=== PATIENT | female | born 1965 | race Caucasian/White ===

== ENCOUNTER 2017-09-05 17:41 | Emergency (ER) | payer OTHER ==
[2017-09-05 17:55] VITALS: BP 129/78; PULSE 96; TEMP 98.2; BMI 29.2
[2017-09-05] MEDS ORDERED: ASPIRIN 81 MG CHEWABLE TABLETS PO ONE (18:54)
[2017-09-05] MEDS ORDERED: ASPIRIN 81 MG CHEWABLE TABLETS ONE (19:13)
[2017-09-05 19:28] LABS: BASOPHIL 0.7 % (0-2.0); EOSINOPHIL 2.1 % (0-4.5); MCH 29.3 pg (25.7-33.7); MCHC 33.3 g/dl (32.0-36.0); MEAN CELL VOLUME 87.9 fl (80-96); MEAN PLT VOLUME 8.7 fl (7.5-11.1); NEUTROPHILS 51.1 % (42.8-82.8); PLATELET COUNT 234 K/MM3 (134-434)
[2017-09-05 19:42] LABS: INR 0.95 (0.82-1.09); PROTHROMBIN TIME (PATIENT) 10.7 SEC (9.98-11.88)
--- NOTE | 2017-09-05 19:43 | PDOC ---
History of Present Illness - General Chief Complaint: Chest Pain Stated Complaint: CHEST PAIN Time Seen by Provider: 09/05/17 18:21 History Source: Patient Exam Limitations: No Limitations - History of Present Illness Initial Comments: Patient is a 51 yo F with a PMH of HTn, diabetes, asthma, hypothyroidism, gastritis, and herpes (she wasnt sure), presented to the ED with 6/10, intermittent, radiating to the right neck and LUQ, pressure-like chest pain that started 3 days ago. She said it hurts when she breathes and with movement and nothing alleviates the pain. She had a similar episode last week with nausea and 1 episode of vomiting. She said she also noticed dyspnea and SOB on exertion when walking long distances that started months ago. Patient also endorses palpitations that started around the same time as the SOB. Patient denies dizziness, falls, headaches, and LOC. 09/05/17 19:39 09/05/17 19:43 Presenting Symptoms: Abdominal Pain, Chest Pain, Dizziness, Nausea, Short of Breath, Vomiting Timing/Duration: reports: intermittent Severity/Quality: reports: moderate, pressure Location: reports: central, abdomen Chest Pain Radiation: reports: neck (right neck), other (RUQ abdomen) Activities at Onset: reports: exertion, no specific activity, working Prior Chest Pain/Cardiac Workup: reports: No prior cardiac workup. denies: Echocardiography, Heart Attack Modifying Factors: improves with: breathing, movement, palpation Past History - Past Medical History Allergies/Adverse Reactions: Allergies Allergy/AdvReac Type Severity Reaction Status Date / Time No Known Allergies Allergy Verified 09/05/17 17:55 Home Medications: Ambulatory Orders Albuterol Sulfate Inhaler - [Ventolin HFA Inhaler -] 2 inh PO Q4H PRN 07/24/15 Folic Acid 1 mg PO DAILY 07/24/15 Hydrochlorothiazide 25 mg PO DAILY 07/24/15 Levothyroxine [Synthroid -] 25 mcg PO DAILY 07/24/15 Lisinopril 5 mg PO DAILY 07/24/15 Methotrexate Sodium [Methotrexate] 2.5 mg PO DAILY 07/24/15 Omeprazole [Prilosec] 40 mg PO DAILY 07/24/15 Oxycodone HCl/Acetaminophen [Percocet 7.5-500 mg Tablet] 1 - 2 tab PO Q6H PRN 09 /12/15 Sulfamethoxazole/Trimethoprim [Bactrim *Ds*] 1 tab PO BID #14 tablet 12/14/15 Anemia: No Asthma: Yes Cancer: No Cardiac Disorders: No CVA: No COPD: No CHF: No Dementia: No Diabetes: Yes (DM) GI Disorders: Yes (GASTRITIS) HTN: Yes Hypercholesterolemia: No Seizures: No Thyroid Disease: Yes - Surgical History Abdominal Surgery: Yes (FIBROIDS REMOVED) Appendectomy: No Cardiac Surgery: No Cholecystectomy: Yes Lung Surgery: No Neurologic Surgery: No Orthopedic Surgery: Yes (ARTHROSCOPY KNEE) - Immunization History Immunization Up to Date: Yes - Suicide/Smoking/Psychosocial Hx Smoking Status: No Smoking History: Never smoked Have you smoked in the past 12 months: No Number of Cigarettes Smoked Daily: 0 Hx Alcohol Use: No Drug/Substance Use Hx: No Substance Use Type: None Hx Substance Use Treatment: No Cardiac Specific PMH - Complaint Specific PMHX Pacemaker: No Review of Systems - Review of Systems Constitutional: No: Diaphoresis, Fever, Night Sweats HEENTM: No: Blurred Vision, Recent change in vision Respiratory: Yes: Shortness of Breath, SOB with Exertion. No: Cough, Wheezing Cardiac (ROS): Yes: Chest Pain, Palpitations. No: Edema, Lightheadedness, Syncope ABD/GI: Yes: Nausea, Vomiting. No: Abdominal Distended, Constipated, Diarrhea, Difficulty Swallowing : No: Burning, Dysuria Neurological: Yes: Dizziness. No: Headache, Numbness, Tingling, Weakness, Unsteady Gait *Physical Exam - Vital Signs Last Vital Signs Temp Pulse Resp BP Pulse Ox 98.2 F 96 H 20 129/78 100 09/05/17 17:52 09/05/17 17:52 09/05/17 17:52 09/05/17 17:52 09/05/17 17:52 - Physical Exam General Appearance: No: Apparent Distress HEENT: positive: EOMI, SALINA, Normal Voice, Symmetrical Neck: positive: Supple Respiratory/Chest: positive: Chest Tender (Tender to palpation on chest), Lungs Clear, Normal Breath Sounds Cardiovascular: positive: Regular Rhythm, Regular Rate. negative: Edema, JVD Vascular Pulses: Dorsalis-Pedis (R): 2+, Doralis-Pedis (L): 2+ Gastrointestinal/Abdominal: positive: Tender (LUQ) Heart Score/ECG Review - Electrocardiogram EKG: Normal ED Treatment Course - LABORATORY CBC & Chemistry Diagram: 09/05/17 19:20 09/05/17 19:20 - ADDITIONAL ORDERS Additional order review: 09/05/17 19:20 RBC 4.28 MCV 87.9 MCHC 33.3 RDW 14.0 MPV 8.7 Neutrophils % 51.1 D Lymphocytes % 37.8 D Monocytes % 8.3 Eosinophils % 2.1 Basophils % 0.7 - Medications Given in the ED: ED Medications Discontinued Medications Generic Name Dose Route Start Last Admin Trade Name Freq PRN Reason Stop Dose Admin Aspirin 162 mg 09/05/17 18:54 09/05/17 19:26 Asa - PO 09/05/17 18:55 162 mg ONCE ONE Administration Medical Decision Making - Medical Decision Making #Atypical Chest pain -Trops -CBC -CMP -BNP -Cardiac monitoring -ASA -monitor vital signs *DC/Admit/Observation/Transfer Diagnosis at time of Disposition: Atypical chest pain, Chest pain in adult
[2017-09-05 19:53] LABS: ALBUMIN 3.8 g/dl (3.4-5.0); ANION GAP 6 (8-16); BILIRUBIN,TOTAL 0.8 mg/dL (0.2-1.0); CALCIUM 8.6 mg/dL (8.5-10.1); CO2 31 mmol/L (21-32); CREATININE 0.8 mg/dL (0.55-1.02); GLUCOSE,RANDOM 111 mg/dL (74-106); MAGNESIUM 2.2 mg/dL (1.8-2.4); SGOT/AST 16 U/L (15-37); SGPT/ALT 25 U/L (12-78); TOT PROT 7.3 g/dl (6.4-8.2)
[2017-09-05 19:56] LABS: ALK PHOS 66 U/L (45-117); CPK 100 IU/L (26-192); TROPONIN I < 0.02 ng/ml (0.00-0.05)
--- NOTE | 2017-09-05 21:07 | PDOC ---
*Physical Exam - Vital Signs Last Vital Signs Temp Pulse Resp BP Pulse Ox 98.2 F 96 H 20 129/78 100 09/05/17 17:52 09/05/17 17:52 09/05/17 17:52 09/05/17 17:52 09/05/17 17:52 - Physical Exam General Appearance: Yes: Nourished, Appropriately Dressed Respiratory/Chest: positive: Lungs Clear Cardiovascular: positive: Regular Rhythm, Regular Rate, S1, S2. negative: Murmur Gastrointestinal/Abdominal: positive: Soft. negative: Guarding, Rebound Neurologic: positive: Fully Oriented, Alert ED Treatment Course - LABORATORY CBC & Chemistry Diagram: 09/05/17 19:20 09/05/17 19:20 - ADDITIONAL ORDERS Additional order review: Laboratory Results 09/05/17 09/05/17 09/05/17 19:20 19:20 19:20 PT with INR 10.70 INR 0.95 Sodium 138 Potassium 3.6 Chloride 101 Carbon Dioxide 31 Anion Gap 6 L BUN 11 Creatinine 0.8 Creat Clearance w eGFR > 60 Random Glucose 111 H Calcium 8.6 Magnesium 2.2 Total Bilirubin 0.8 D AST 16 ALT 25 Alkaline Phosphatase 66 Creatine Kinase 100 Troponin I < 0.02 B-Natriuretic Peptide 11.97 Total Protein 7.3 Albumin 3.8 09/05/17 19:20 RBC 4.28 MCV 87.9 MCHC 33.3 RDW 14.0 MPV 8.7 Neutrophils % 51.1 D Lymphocytes % 37.8 D Monocytes % 8.3 Eosinophils % 2.1 Basophils % 0.7 - Medications Given in the ED: ED Medications Discontinued Medications Generic Name Dose Route Start Last Admin Trade Name Federico PRN Reason Stop Dose Admin Aspirin 162 mg 09/05/17 18:54 09/05/17 19:26 Asa - PO 09/05/17 18:55 162 mg ONCE ONE Administration Medical Decision Making - Medical Decision Making 09/05/17 21:06 Patient is a 51 y.o. female who presents with chest pain. During course of admission, patient continued to complain of chest pain (reproducible) as well as diffuse abdominal pain with initial c/o of pain in LLQ and then suprapubic however on PE patient did not display tenderness of palpation. EKG shows NSR, HR 80, with normal intervals, no LAD/RAD, and no ST elevations/depressions indicating ischemic change. Patient's Heart Score 2. Troponin (-) x1 as patient's pain started three days previous, less sensitive for [place], however, given patient's low cardiac risk as per Heart Score, as well as reproducible chest pain and EKG negative for ischemic changes, patient to be discharged home with return precautions. *DC/Admit/Observation/Transfer Diagnosis at time of Disposition: Atypical chest pain, Chest pain in adult - Discharge Dispostion Disposition: HOME Condition at time of disposition: Good Admit: No - Referrals Referrals: Fanta Dill MD [Primary Care Provider] - - Patient Instructions Printed Discharge Instructions: DI for Atypical Chest Pain Additional Instructions: Please return to the Emergency Department should you have any worsening or concerning symptoms. Please follow-up with your PCP in the next 1 week. - Post Discharge Activity
--- NOTE | 2017-09-06 17:23 | EKG ---
Test Reason : Blood Pressure : / mmHG Vent. Rate : 080 BPM Atrial Rate : 080 BPM P-R Int : 156 ms QRS Dur : 086 ms QT Int : 398 ms P-R-T Axes : 051 022 033 degrees QTc Int : 459 ms NORMAL SINUS RHYTHM NORMAL ECG WHEN COMPARED WITH ECG OF 13-DEC-2015 22:03, NO SIGNIFICANT CHANGE WAS FOUND Confirmed by LEILANI DOUGLAS MD ([id number]) on 09/06/2017 5:22:50 PM Referred By: Confirmed By:LEILANI DOUGLAS MD
== END 2017-09-05 21:38 | disposition home or self-care (01) ==
LOC: JER 17:41
DX: R07.89 Other chest pain (principal)
CPT/HCPCS: 36415; 71020-TC; 80053; 82550; 83735; 83880; 84484; 85025; 85610; 93005; 93010; 99282-25

== ENCOUNTER 2017-10-23 11:00 | Emergency (ER) | payer OTHER ==
[2017-10-23 12:26] VITALS: BP 149/76; PULSE 78; TEMP 97.8; BMI 29.8
--- NOTE | 2017-10-23 12:33 | PDOC ---
History of Present Illness - General Chief Complaint: Back Pain Stated Complaint: BACK PAIN Time Seen by Provider: 10/23/17 12:28 History Source: Patient Exam Limitations: No Limitations - History of Present Illness Initial Comments: 10/23/17 12:28 Patient is here with complaints of right shoulder 3 days. 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 has intermittent spasm and problems with her back. Uses ibuprofen only for pain relief, as patient is on multiple medications for depression. Has not taken any ibuprofen today. Denies numbness or tingling to hands or feet, denies problems with bowel or bladder, no fevers. Occurred: reports: yesterday Severity: reports: mild, moderate Pain Location: reports: back Method of Injury: Yes: unknown Modifying Factors: improves with: None Loss of Consciousness: no loss of consciousness Associated Symptoms (Fall): denies symptoms Past History - Travel Traveled outside of the country in the last 30 days: No Close contact w/someone who was outside of country & ill: No - Past Medical History Allergies/Adverse Reactions: Allergies Allergy/AdvReac Type Severity Reaction Status Date / Time No Known Allergies Allergy Verified 10/23/17 11:16 Home Medications: Ambulatory Orders Albuterol Sulfate Inhaler - [Ventolin HFA Inhaler -] 2 inh PO Q4H PRN 07/24/15 Folic Acid 1 mg PO DAILY 07/24/15 Hydrochlorothiazide 25 mg PO DAILY 07/24/15 Levothyroxine [Synthroid -] 25 mcg PO DAILY 07/24/15 Lisinopril 5 mg PO DAILY 07/24/15 Methotrexate Sodium [Methotrexate] 2.5 mg PO DAILY 07/24/15 Omeprazole [Prilosec] 40 mg PO DAILY 07/24/15 Anemia: No Asthma: Yes Cancer: No Cardiac Disorders: No CVA: No COPD: No CHF: No Dementia: No Diabetes: Yes (DM) GI Disorders: Yes (GASTRITIS) HTN: Yes Hypercholesterolemia: No Seizures: No Thyroid Disease: Yes - Surgical History Abdominal Surgery: Yes (FIBROIDS REMOVED) Appendectomy: No Cardiac Surgery: No Cholecystectomy: Yes Lung Surgery: No Neurologic Surgery: No Orthopedic Surgery: Yes (ARTHROSCOPY KNEE) - Immunization History Immunization Up to Date: Yes - Suicide/Smoking/Psychosocial Hx Smoking Status: No Smoking History: Never smoked Have you smoked in the past 12 months: No Number of Cigarettes Smoked Daily: 0 Hx Alcohol Use: No Drug/Substance Use Hx: No Substance Use Type: None Hx Substance Use Treatment: No Trauma Specific PMHX - Complaint Specific PMHX Back Injury: Yes (lifting injury in 2008) Review of Systems - Review of Systems Able to Perform ROS?: Yes Is the patient limited Icelandic proficient: Yes Constitutional: Yes: Symptoms Reported, See HPI, Malaise HEENTM: Yes: See HPI. No: Symptoms Reported Musculoskeletal: Yes: Symptoms Reported, See HPI, Back Pain, Muscle Pain All Other Systems: Reviewed and Negative *Physical Exam - Vital Signs Last Vital Signs Temp Pulse Resp BP Pulse Ox 97.8 F 78 19 149/76 100 10/23/17 11:17 10/23/17 11:17 10/23/17 11:10/23/17 11:10/23/17 11:17 - Physical Exam General Appearance: Yes: Nourished, Appropriately Dressed, Apparent Distress, Mild Distress HEENT: positive: SALINA, Normal ENT Inspection, TMs Normal, Pharynx Normal Neck: positive: Tender, Supple, Lymphadenopathy (R), Lymphadenopathy (L) Respiratory/Chest: positive: Lungs Clear. negative: Normal Breath Sounds Gastrointestinal/Abdominal: positive: Soft. 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, Fully Oriented, Alert, Normal Mood/ Affect, Normal Response, Motor Strength 5/5 *DC/Admit/Observation/Transfer Diagnosis at time of Disposition: Muscle spasm - Discharge Dispostion Disposition: HOME Condition at time of disposition: Stable Admit: No - Referrals Referrals: Fanta Dill MD [Primary Care Provider] - - Patient Instructions Printed Discharge Instructions: DI for Muscle Strain Additional Instructions: Rest, no heavy lifting or exercise until pain is resolved Hot soaks to neck and low back as often as possible/hot showers or Jacuzzis No massage or therapy until spasm is gone Continue ibuprofen 2-200 mg tablets every 6 hours for the next 3 days then as needed for pain and swelling Valium 1 time dose of 2mg for spasm, remembering will make dizzy and sleepy. If not significant improvement within 24 hours with medication and rest regime, followup with private physician for change in medications and /or therapy. - Post Discharge Activity Forms/Work/School Notes: Back to Work
== END 2017-10-23 12:44 | disposition home or self-care (01) ==
LOC: JER 11:00
DX: M62.838 Other muscle spasm (principal); I10 Essential (primary) hypertension; E11.9 Type 2 diabetes mellitus without complications; J45.909 Unspecified asthma, uncomplicated
CPT/HCPCS: 99281-25

== ENCOUNTER 2018-07-23 23:56 | Emergency (ER) | payer OTHER ==
--- NOTE | 2018-07-24 00:09 | PDOC ---
ED Treatment Course - LABORATORY CBC & Chemistry Diagram: 07/24/18 00:33 07/24/18 00:33 Medical Decision Making - Medical Decision Making 07/24/18 00:08 Ms Lizama presents to the ER with a complaint of abdominal pain, vomiting, nausea , diarrhea, tactile temperature Patient returned from the [facility] approximately 6 or 7 days ago. Since her return she's noted multiple bouts of diarrhea. She typically has between 6 and 8 loose stools, nonbloody, nonmucoid. Patient states the stool is green in color Patient has also been nauseous and vomiting Patient states her son has similar symptoms Pt seen by Midlevel Provider under my direct supervision Pt interviewed and examined Ancillary studies reviewed I agree with plan as outlined by Midlevel Provider EKG: NSR rate of 83 bpm, axis nml, intervals nml, no st elevation or depression Patient presents with what likely is traveler's diarrhea. Will give prescription for antibiotics. Patient asked to follow with her primary care physician. Patient asked to return to the emergency department for any other concerns or complaints. Patient encouraged to po hydrate 07/24/18 04:55 *DC/Admit/Observation/Transfer Diagnosis at time of Disposition: Gastroenteritis - Discharge Dispostion Disposition: HOME - Prescriptions Prescriptions: Ciprofloxacin [Cipro -] 500 mg PO Q12H #14 tablet Dicyclomine HCl [Bentyl -] 10 mg PO BID PRN #10 capsule PRN Reason: Pain metroNIDAZOLE [Flagyl -] 500 mg PO TID #21 tablet Ondansetron HCl [Zofran] 4 mg PO TID PRN #10 tablet PRN Reason: Nausea - Referrals Referrals: Fanta Dill MD [Primary Care Provider] - - Patient Instructions Printed Discharge Instructions: Gastroenteritis Diet Additional Instructions: drink plenty of fluids. give cipro/ flagyl as prescribed. follow up with your doctor as soon as possible. Additional Instructions: * Please call your personal physician to report your Emergency Department visit and to report your progress, if any. * If there is no improvement in symptoms in 2 days call your physician. * Return to the Emergency Department for any worsening symptoms. - Post Discharge Activity Forms/Work/School Notes: Back to Work
[2018-07-24 00:20] VITALS: BP 139/88; PULSE 80; TEMP 98.6; BMI 25.7
--- NOTE | 2018-07-24 00:32 | PDOC ---
History of Present Illness - General Chief Complaint: Pain, Acute Stated Complaint: Vomiting/Diarrhea/ABD PAIN Time Seen by Provider: 07/24/18 00:07 History Source: Patient - History of Present Illness Initial Comments: 07/24/18 00:50 52 YEAR OLD FEMALE WITH VOMITING, Diarrhea, generalized abdominal cramping, self reported tactile temps x 6 days. patient returned from [facility] 7 days ago. 07/24/18 01:04 Past History - Past Medical History Allergies/Adverse Reactions: Allergies Allergy/AdvReac Type Severity Reaction Status Date / Time No Known Allergies Allergy Verified 07/24/18 00:19 Home Medications: Ambulatory Orders Albuterol Sulfate Inhaler - [Ventolin HFA Inhaler -] 2 inh PO Q4H PRN 07/24/15 Folic Acid 1 mg PO DAILY 07/24/15 Hydrochlorothiazide 25 mg PO DAILY 07/24/15 Levothyroxine [Synthroid -] 25 mcg PO DAILY 07/24/15 Lisinopril 5 mg PO DAILY 07/24/15 Methotrexate Sodium [Methotrexate] 2.5 mg PO DAILY 07/24/15 Omeprazole [Prilosec] 40 mg PO DAILY 07/24/15 Meclizine HCl 25 mg PO DAILY PRN #10 tablet 01/05/18 Meclizine HCl [Antivert -] 25 mg PO DAILY PRN #10 tablet 01/05/18 Ondansetron HCl [Zofran] 4 mg PO PRN #10 tablet MDD 3 tablets 01/05/18 Ondansetron HCl [Zofran] 4 mg PO TID #10 tablet 01/05/18 Ciprofloxacin [Cipro -] 500 mg PO Q12H #14 tablet 07/24/18 Dicyclomine HCl [Bentyl -] 10 mg PO BID PRN #10 capsule 07/24/18 Ondansetron HCl [Zofran] 4 mg PO TID PRN #10 tablet 07/24/18 metroNIDAZOLE [Flagyl -] 500 mg PO TID #21 tablet 07/24/18 Anemia: No Asthma: Yes Cancer: No Cardiac Disorders: No CVA: No COPD: No CHF: No Dementia: No Diabetes: Yes (DM) GI Disorders: Yes (GASTRITIS) HTN: Yes Hypercholesterolemia: No Seizures: No Thyroid Disease: Yes - Surgical History Abdominal Surgery: Yes (FIBROIDS REMOVED) Appendectomy: No Cardiac Surgery: No Cholecystectomy: Yes Lung Surgery: No Neurologic Surgery: No Orthopedic Surgery: Yes (ARTHROSCOPY KNEE) - Immunization History Immunization Up to Date: Yes - Suicide/Smoking/Psychosocial Hx Smoking Status: No Smoking History: Never smoked Have you smoked in the past 12 months: No Number of Cigarettes Smoked Daily: 0 Information on smoking cessation initiated: No Hx Alcohol Use: No Drug/Substance Use Hx: No Substance Use Type: None Hx Substance Use Treatment: No Review of Systems - Review of Systems Able to Perform ROS?: Yes Is the patient limited Italian proficient: No Constitutional: No: Symptoms Reported, See HPI, Chills, Diaphoresis, Fever, Loss of Appetite, Malaise, Night Sweats, Weakness, Weight Stable, Unintentional Wgt. Loss, Unexplained wgt Loss, Other ABD/GI: Yes: Diarrhea, Nausea, Vomiting, Abdominal cramping *Physical Exam - Vital Signs Last Vital Signs Temp Pulse Resp BP Pulse Ox 98.6 F 80 20 139/88 99 07/24/18 00:07/24/18 00:07/24/18 00:07/24/18 00:07/24/18 00:19 - Physical Exam General Appearance: Yes: Appropriately Dressed Respiratory/Chest: positive: Lungs Clear, Normal Breath Sounds Cardiovascular: positive: Regular Rhythm, Tachycardia Gastrointestinal/Abdominal: positive: Normal Bowel Sounds, Soft. negative: Tender Musculoskeletal: positive: Normal Inspection Extremity: positive: Normal Capillary Refill, Normal Inspection, Normal Range of Motion Integumentary: positive: Normal Color, Dry, Warm Neurologic: positive: Fully Oriented, Alert, Normal Mood/Affect ED Treatment Course - LABORATORY CBC & Chemistry Diagram: 07/24/18 00:33 07/24/18 00:33 Progress Note - Progress Note Progress Note: A: gastroenteritis P: cbc cmp IVF zofran Medical Decision Making - Medical Decision Making 07/24/18 02:37 due to prolonged diarrhea, vomiting will give a short course of cipro/ flagyl to cover travels diarrhea. patient is afebrile non toxic appearing. *DC/Admit/Observation/Transfer Diagnosis at time of Disposition: Gastroenteritis - Discharge Dispostion Disposition: HOME - Prescriptions Prescriptions: Ciprofloxacin [Cipro -] 500 mg PO Q12H #14 tablet Dicyclomine HCl [Bentyl -] 10 mg PO BID PRN #10 capsule PRN Reason: Pain metroNIDAZOLE [Flagyl -] 500 mg PO TID #21 tablet Ondansetron HCl [Zofran] 4 mg PO TID PRN #10 tablet PRN Reason: Nausea - Referrals Referrals: Fanta Dill MD [Primary Care Provider] - - Patient Instructions Printed Discharge Instructions: Gastroenteritis Diet Additional Instructions: drink plenty of fluids. give cipro/ flagyl as prescribed. follow up with your doctor as soon as possible. Additional Instructions: * Please call your personal physician to report your Emergency Department visit and to report your progress, if any. * If there is no improvement in symptoms in 2 days call your physician. * Return to the Emergency Department for any worsening symptoms. - Post Discharge Activity Forms/Work/School Notes: Back to Work
[2018-07-24] MEDS ORDERED: ONDANSETRON 4 MG/2 ML VIAL IVPB ONE (00:45)
[2018-07-24] MEDS ORDERED: SODIUM CHLORIDE 1,000 ML IV STA ×2 (00:45→02:01)
[2018-07-24] MEDS ORDERED: FAMOTIDINE 20 MG/50 ML IVPB 20 MG/50 ML MG IVPB ONE ×2 (00:45→00:54)
[2018-07-24 00:48] LABS: BASO % 0.2 % (0-2.0); EOS % 0.9 % (0-4.5); HEMATOCRIT 38.5 % (32.4-45.2); LYMPH % 13.3 % (8-40); MCH 29.4 pg (25.7-33.7); MCHC 33.7 g/dl (32.0-36.0); MEAN CELL VOLUME 87.1 fl (80-96); MEAN PLT VOLUME 9.1 fl (7.5-11.1); MONO % 4.2 % (3.8-10.2); NEUT % 81.4 % (42.8-82.8); PLATELET COUNT 256 K/MM3 (134-434); RBC 4.42 M/mm3 (3.60-5.2); RDW 14.4 % (11.6-15.6); WHITE BLOOD COUNT 8.2 K/mm3 (4.0-10.0)
[2018-07-24] MEDS ORDERED: ONDANSETRON 4 MG/2 ML VIAL ONE (00:54)
[2018-07-24 01:10] LABS: ALBUMIN 4.1 g/dl (3.4-5.0); ANION GAP 8 MMOL/L (8-16); BILIRUBIN,TOTAL 0.8 mg/dL (0.2-1.0); BLOOD UREA NITROGEN 13 mg/dL (7-18); CALCIUM 9.2 mg/dL (8.5-10.1); CHLORIDE 102 mmol/L (98-107); CO2 29 mmol/L (21-32); CREATININE 0.8 mg/dL (0.55-1.02); GLUCOSE,RANDOM 148 mg/dL (74-106); POTASSIUM 3.9 mmol/L (3.5-5.1); SGOT/AST 26 U/L (15-37); SGPT/ALT 32 U/L (12-78); SODIUM 139 mmol/L (136-145); TOT PROT 7.6 g/dl (6.4-8.2)
[2018-07-24 01:11] LABS: ALK PHOS 69 U/L (45-117)
[2018-07-24 01:46] LABS: URINE APPEARANCE CLEAR; URINE BILIRUBIN NEGATIVE (<2.0 mg/dL); URINE COLOR YELLOW; URINE GLUCOSE (UA) NEGATIVE (NEGATIVE); URINE KETONE TRACE (NEGATIVE); URINE LEUK ESTERASE NEGATIVE (NEGATIVE); URINE NITRITE NEGATIVE (NEGATIVE); URINE PROTEIN NEGATIVE (NEGATIVE); URINE UROBILINOGEN NEGATIVE mg/dL (0.2-1.0)
--- NOTE | 2018-07-24 11:48 | EKG ---
Test Reason : Blood Pressure : / mmHG Vent. Rate : 083 BPM Atrial Rate : 083 BPM P-R Int : 152 ms QRS Dur : 082 ms QT Int : 418 ms P-R-T Axes : 046 056 058 degrees QTc Int : 491 ms NORMAL SINUS RHYTHM NONSPECIFIC T WAVE ABNORMALITY PROLONGED QT ABNORMAL ECG WHEN COMPARED WITH ECG OF 05-JAN-2018 13:11, NO SIGNIFICANT CHANGE WAS FOUND Confirmed by TELLO PAN, GAYE ([id number]) on 07/24/2018 11:48:18 AM Referred By: Confirmed By:GAYE JAVED MD
== END 2018-07-24 03:25 | disposition home or self-care (01) ==
LOC: JER 23:56
PROC: 3E0337Z Introduction of Electrolytic and Water Balance Substance into Peripheral Vein, Percutaneous Approach (ICD-10-PCS; principal; 2018-07-23)
PROC: 3E033GC Introduction of Other Therapeutic Substance into Peripheral Vein, Percutaneous Approach (ICD-10-PCS; 2018-07-23)
PROC: 3E033GC Introduction of Other Therapeutic Substance into Peripheral Vein, Percutaneous Approach (ICD-10-PCS; 2018-07-23)
DX: K52.9 Noninfective gastroenteritis and colitis, unspecified (principal)
CPT/HCPCS: 36415; 80053; 81003; 83690; 85025; 93005; 93010; 96361; 96365; 96375; 99282-25; J7030

== ENCOUNTER 2019-02-01 09:38 | Emergency (ER) | payer OTHER ==
[2019-02-01 09:50] VITALS: BP 150/87; TEMP 99; BMI 29.2
[2019-02-01] MEDS ORDERED: ACETAMINOPHEN 1000 MG/100 ML VIAL (NON FORMULARY) IVPB ONE (10:11)
[2019-02-01] MEDS ORDERED: SODIUM CHLORIDE 1,000 ML IV STA (10:11)
[2019-02-01] MEDS ORDERED: ONDANSETRON 4 MG/2 ML VIAL IVPB ONE (10:11)
--- NOTE | 2019-02-01 10:16 | PDOC ---
History of Present Illness - General History Source: Patient Exam Limitations: No Limitations - History of Present Illness Initial Comments: 02/01/19 10:39 53-year-old female patient with history of hypertension, diet-controlled diabetes, thyroid disorder, arthritis presents to the emergency department for body aches, chills, tension headache since overnight. The patient reports yesterday that she was feeling well. Denies sick contacts or recent travels. Patient did not receive her flu vaccination this year. Stated that she woke up this morning with body aches, chills, tactile fevers, cervical lymphadenopathy, mild to moderate tension headaches. Denies neck stiffness or neurological deficits. Patient denies cough, vomiting, diarrhea. Does report some mild nausea with the headache. Came to the ER for evaluation. <Maurisio Wan - Last Filed: 02/01/19 10:38> - General History Source: Patient Exam Limitations: No Limitations <Nilo Dhaliwal - Last Filed: 02/01/19 12:34> - General Chief Complaint: Headache Stated Complaint: BODYACHES/ HEADACHE Time Seen by Provider: 02/01/19 10:00 Past History <Maurisio Wan - Last Filed: 02/01/19 10:38> - Past Medical History Anemia: No Asthma: Yes Cancer: No Cardiac Disorders: No CVA: No COPD: No CHF: No Dementia: No Diabetes: Yes (DM) GI Disorders: Yes (GASTRITIS) HTN: Yes Hypercholesterolemia: No Seizures: No Thyroid Disease: Yes - Surgical History Abdominal Surgery: Yes (FIBROIDS REMOVED) Appendectomy: No Cardiac Surgery: No Cholecystectomy: Yes Lung Surgery: No Neurologic Surgery: No Orthopedic Surgery: Yes (ARTHROSCOPY KNEE) - Immunization History Immunization Up to Date: Yes - Suicide/Smoking/Psychosocial Hx Smoking Status: No Smoking History: Never smoked Have you smoked in the past 12 months: No Number of Cigarettes Smoked Daily: 0 Hx Alcohol Use: No Drug/Substance Use Hx: No Substance Use Type: None Hx Substance Use Treatment: No <Nilo Dhaliwal - Last Filed: 02/01/19 12:34> - Past Medical History Allergies/Adverse Reactions: Allergies Allergy/AdvReac Type Severity Reaction Status Date / Time No Known Allergies Allergy Verified 02/01/19 09:46 Home Medications: Ambulatory Orders Acetaminophen [Tylenol] 650 mg PO Q4H PRN #20 capsule 02/01/19 Naproxen 500 mg PO BID PRN #20 tablet 02/01/19 Oseltamivir Phosphate [Tamiflu] 75 mg PO BID PRN #9 capsule 02/01/19 *Physical Exam - Vital Signs Last Vital Signs Temp Pulse Resp BP Pulse Ox 99.0 F 110 H 17 150/87 100 02/01/19 09:46 02/01/19 09:46 02/01/19 09:46 02/01/19 09:46 02/01/19 09:46 - Physical Exam Comments: 02/01/19 10:26 GENERAL: (+)warm to touch. Awake, alert, and fully oriented, in no acute distress HEAD: No signs of trauma EYES: PERRLA, EOMI, sclera anicteric, conjunctiva clear ENT: Auricles normal inspection, hearing grossly normal, nares patent, oropharynx clear without exudates. Moist mucosa NECK: (+)supple, oropharynx mildly erythematous, mild tenderness to anterior cervical lymphadenopathy. Normal ROM, supple, no JVD, or masses LUNGS: Breath sounds equal, clear to auscultation bilaterally. No wheezes, and no crackles HEART: Regular rate and rhythm, normal S1 and S2, no murmurs, rubs or gallops ABDOMEN: Soft, nontender, normoactive bowel sounds. No guarding, no rebound. No masses EXTREMITIES: Normal range of motion, no edema. No clubbing or cyanosis. No cords, erythema, or tenderness NEUROLOGICAL: Cranial nerves II through XII grossly intact. Normal speech, normal gait SKIN: Warm, Dry, normal turgor, no rashes or lesions noted. <Maurisio Wan - Last Filed: 02/01/19 10:38> - Vital Signs Last Vital Signs Temp Pulse Resp BP Pulse Ox 99.0 F 110 H 17 150/87 100 02/01/19 09:46 02/01/19 09:46 02/01/19 09:46 02/01/19 09:46 02/01/19 09:46 <Nilo Dhaliwal - Last Filed: 02/01/19 12:34> Moderate Sedation - Procedure Monitoring Vital Signs: Procedure Monitoring Vital Signs Temperature 99.0 F 02/01/19 09:46 Pulse Rate 110 H 02/01/19 09:46 Respiratory Rate 17 02/01/19 09:46 Blood Pressure 150/87 02/01/19 09:46 O2 Sat by Pulse Oximetry (%) 100 02/01/19 09:46 <Maurisio Wan - Last Filed: 02/01/19 10:38> - Procedure Monitoring Vital Signs: Procedure Monitoring Vital Signs Temperature 99.0 F 02/01/19 09:46 Pulse Rate 110 H 02/01/19 09:46 Respiratory Rate 17 02/01/19 09:46 Blood Pressure 150/87 02/01/19 09:46 O2 Sat by Pulse Oximetry (%) 100 02/01/19 09:46 <Nilo Dhaliwal - Last Filed: 02/01/19 12:34> ED Treatment Course - LABORATORY CBC & Chemistry Diagram: 02/01/19 10:13 02/01/19 10:13 - ADDITIONAL ORDERS Additional order review: 02/01/19 10:13 RBC 4.48 MCV 88.8 MCHC 35.0 RDW 14.0 MPV 8.9 Neutrophils % 80.5 Lymphocytes % 8.0 D Monocytes % 9.6 D Eosinophils % 1.4 Basophils % 0.5 <Maurisio Wan - Last Filed: 02/01/19 10:38> - LABORATORY CBC & Chemistry Diagram: 02/01/19 10:13 02/01/19 10:13 - RADIOLOGY Radiology Studies Ordered: Category Date Time Status CHEST X-RAY PORTABLE* [RAD] Stat Radiology 02/01/19 10:11 Ordered <Nilo Dhaliwal - Last Filed: 02/01/19 12:34> Medical Decision Making - Medical Decision Making 02/01/19 10:12 A portion of this note was documented by scribe services under my direction. I have reviewed the details of the note, within reason, and agree with the documentation with the following case summary and management plan written by me. Patient treated in the ED. Nursing notes are reviewed and incorporated into the medical decision-making. Vital signs reviewed. Peripheral IV access obtained by the nurse, laboratory studies are drawn and sent, reviewed and interpreted by myself. Vital Signs Temp Pulse Resp BP Pulse Ox 99.0 F 110 H 17 150/87 100 02/01/19 09:46 02/01/19 09:46 02/01/19 09:46 02/01/19 09:46 02/01/19 09:46 53-year-old female patient with history of hypertension, diet-controlled diabetes, thyroid disorder, arthritis presents to the emergency department for body aches, chills, tension headache since overnight. The patient reports yesterday that she was feeling well. Denies sick contacts or recent travels. Patient did not receive her flu vaccination this year. Stated that she woke up this morning with body aches, chills, tactile fevers, cervical lymphadenopathy, mild to moderate tension headaches. Denies neck stiffness or neurological deficits. Patient denies cough, vomiting, diarrhea. Does report some mild nausea with the headache. Came to the ER for evaluation. I suspect patient likely has flulike symptoms versus pharyngitis. Viral syndrome is also the differential. I have low suspicion for other disease process such as meningitis or encephalitis. However, we'll obtain a strep throat , influenza swab, labs. Treat symptoms and reassess. 02/01/19 11:21 CBC, BMP 02/01/19 10:13 02/01/19 10:13 CMP Sodium 133 mmol/L (136-145) L 02/01/19 10:13 Potassium 3.7 mmol/L (3.5-5.1) 02/01/19 10:13 Chloride 99 mmol/L (98-107) 02/01/19 10:13 Carbon Dioxide 28 mmol/L (21-32) 02/01/19 10:13 Anion Gap 6 MMOL/L (8-16) L 02/01/19 10:13 BUN 10 mg/dL (7-18) 02/01/19 10:13 Creatinine 0.8 mg/dL (0.55-1.3) 02/01/19 10:13 Creat Clearance w eGFR 74.47 (>60) 02/01/19 10:13 Random Glucose 124 mg/dL (74-106) H 02/01/19 10:13 Calcium 9.6 mg/dL (8.5-10.1) 02/01/19 10:13 Total Bilirubin 0.8 mg/dL (0.2-1) 02/01/19 10:13 AST 20 U/L (15-37) 02/01/19 10:13 ALT 32 U/L (13-61) 02/01/19 10:13 Alkaline Phosphatase 76 U/L (45-117) 02/01/19 10:13 Total Protein 8.0 g/dl (6.4-8.2) 02/01/19 10:13 Albumin 4.4 g/dl (3.4-5.0) 02/01/19 10:13 Chest xray reviewed. no acute findings. Though rapid strep and influenza is negative, will treat as influenza. Pt symptoms are influenza-like. However, influenza swab is sensitivity 70%. Will initiate tamiflu. 02/01/19 12:30 Pt feels better and would like to go home. I discussed the physical exam findings, ancillary test results and final diagnoses with the patient. I answered all of the patient's questions. The patient was satisfied with the care received and felt comfortable with the discharge plan and treatment plan. The patient will call their primary care physician within 24 hours to arrange follow-up and will return to the Emergency Department with any new, persistant or worsening symptoms. <Nilo Dhaliwal - Last Filed: 02/01/19 12:34> *DC/Admit/Observation/Transfer - Attestations Scribe Attestion: 02/01/19 10:26 Documentation prepared by Maurisio Wan, acting as medical records tech for Nilo Dhaliwal MD. <Maurisio Wan - Last Filed: 02/01/19 10:38> - Discharge Dispostion Decision to Admit order: No <Nilo Dhaliwal - Last Filed: 02/01/19 12:34> Diagnosis at time of Disposition: Viral syndrome - Discharge Dispostion Disposition: HOME Condition at time of disposition: Stable - Prescriptions Prescriptions: Acetaminophen [Tylenol] 650 mg PO Q4H PRN #20 capsule PRN Reason: Pain/Fever Naproxen 500 mg PO BID PRN #20 tablet PRN Reason: Pain/Fever Oseltamivir Phosphate [Tamiflu] 75 mg PO BID PRN #9 capsule PRN Reason: Flu - Referrals Referrals: Fanta Dill MD [Primary Care Provider] - - Patient Instructions Printed Discharge Instructions: DI for Viral Syndrome Additional Instructions: Your blood test and chest xray is unremarkable. Your strep throat test is negative. Even though your flu test is negative, it is only 70% sensitive to picking up the disease. Given your symptoms, I believe that you may benefit from taking tamiflu. Please take the tamiflu as prescribed. Take 500 mg naproxen every 12 hours and/or 650 mg tylenol every 4 hours as needed for pain/fever. It may take several days before your symptoms improve. Please follow up with your doctor next week. Print Language: CAMEROONIAN - Post Discharge Activity Forms/Work/School Notes: Back to Work
[2019-02-01] MEDS ORDERED: ACETAMINOPHEN INJECTION 100 ML IVPB ONE (10:18)
[2019-02-01] MEDS ORDERED: ONDANSETRON 4 MG/2 ML VIAL ONE (10:19)
[2019-02-01 10:23] LABS: BASO % 0.5 % (0-2.0); EOS % 1.4 % (0-4.5); HEMATOCRIT 39.8 % (32.4-45.2); HEMOGLOBIN 13.9 GM/dL (10.7-15.3); MCH 31.1 pg (25.7-33.7); MEAN CELL VOLUME 88.8 fl (80-96); MEAN PLT VOLUME 8.9 fl (7.5-11.1); MONO % 9.6 % (3.8-10.2); NEUT % 80.5 % (42.8-82.8); PLATELET COUNT 246 K/MM3 (134-434); RBC 4.48 M/mm3 (3.60-5.2); WHITE BLOOD COUNT 6.8 K/mm3 (4.0-10.0)
[2019-02-01 10:39] LABS: ALBUMIN 4.4 g/dl (3.4-5.0); ALK PHOS 76 U/L (45-117); ANION GAP 6 MMOL/L (8-16); BILIRUBIN,TOTAL 0.8 mg/dL (0.2-1); BLOOD UREA NITROGEN 10 mg/dL (7-18); CALCIUM 9.6 mg/dL (8.5-10.1); CHLORIDE 99 mmol/L (98-107); CO2 28 mmol/L (21-32); CREATININE 0.8 mg/dL (0.55-1.3); GLUCOSE,RANDOM 124 mg/dL (74-106); POTASSIUM 3.7 mmol/L (3.5-5.1); SGOT/AST 20 U/L (15-37); SGPT/ALT 32 U/L (13-61); SODIUM 133 mmol/L (136-145)
[2019-02-01] MEDS ORDERED: KETOROLAC TROMETHAMINE 30 MG/1 ML VIAL IVPUSH ONE (11:12)
[2019-02-01] MEDS ORDERED: OSELTAMIVIR PHOSPHATE 75 MG CAPSULE PO ONE (11:12)
[2019-02-01] MEDS ORDERED: KETOROLAC TROMETHAMINE 30 MG/1 ML VIAL ONE (11:27)
[2019-02-01] MEDS ORDERED: OSELTAMIVIR PHOSPHATE 75 MG CAPSULE ONE (11:27)
[2019-02-01 12:54] VITALS: PULSE 84
--- NOTE | 2019-02-03 10:26 | EKG ---
Test Reason : Blood Pressure : / mmHG Vent. Rate : 089 BPM Atrial Rate : 089 BPM P-R Int : 140 ms QRS Dur : 082 ms QT Int : 400 ms P-R-T Axes : 044 018 046 degrees QTc Int : 486 ms NORMAL SINUS RHYTHM POSSIBLE LEFT ATRIAL ENLARGEMENT NONSPECIFIC T WAVE ABNORMALITY PROLONGED QT ABNORMAL ECG WHEN COMPARED WITH ECG OF 24-JUL-2018 01:05, NO SIGNIFICANT CHANGE WAS FOUND Confirmed by DRAGAN PAN, HANDY ([id number]) on 02/03/2019 10:25:38 AM Referred By: Confirmed By:HANDY ARCHIBALD MD
== END 2019-02-01 12:47 | disposition home or self-care (01) ==
LOC: JER 09:38
PROC: 3E0337Z Introduction of Electrolytic and Water Balance Substance into Peripheral Vein, Percutaneous Approach (ICD-10-PCS; principal; 2019-02-01)
PROC: 3E033NZ Introduction of Analgesics, Hypnotics, Sedatives into Peripheral Vein, Percutaneous Approach (ICD-10-PCS; 2019-02-01)
PROC: 3E033GC Introduction of Other Therapeutic Substance into Peripheral Vein, Percutaneous Approach (ICD-10-PCS; 2019-02-01)
PROC: 3E0333Z Introduction of Anti-inflammatory into Peripheral Vein, Percutaneous Approach (ICD-10-PCS; 2019-02-01)
DX: B34.9 Viral infection, unspecified (principal); I10 Essential (primary) hypertension; E11.9 Type 2 diabetes mellitus without complications
CPT/HCPCS: 36415; 71045-TC-FY; 80053; 85025; 87070; 87804; 87880; 93005; 93010; 96361; 96374; 96375; 99284-25; J0131; J7030

== ENCOUNTER 2021-05-07 21:30 | Emergency (ER) | payer OTHER ==
[2021-05-07 21:46] VITALS: BMI 30.2
[2021-05-07] MEDS ORDERED: ACETAMINOPHEN 1000 MG/100 ML VIAL (NON FORMULARY) IVPB ONE (23:05)
[2021-05-07] MEDS ORDERED: FAMOTIDINE 20 MG/50 ML IVPB 20 MG/50 ML MG IVPB ONE ×2 (23:07→23:48)
[2021-05-07] MEDS ORDERED: ACETAMINOPHEN INJECTION 100 ML IVPB ONE (23:23)
[2021-05-07 23:33] LABS: BASO % 1.1 % (0-2.0); EOS % 2.9 % (0-4.5); HEMATOCRIT 37.1 % (32.4-45.2); HEMOGLOBIN 12.5 GM/dL (10.7-15.3); LYMPH % 39.7 % (8-40); MCH 29.5 pg (25.7-33.7); MCHC 33.8 g/dl (32.0-36.0); MEAN CELL VOLUME 87.3 fl (80-96); MEAN PLT VOLUME 8.7 fl (7.5-11.1); MONO % 7.1 % (3.8-10.2); NEUT % 49.2 % (42.8-82.8); PLATELET COUNT 248 10^3/uL (134-434); RBC 4.25 M/mm3 (3.60-5.2); RDW 13.8 % (11.6-15.6); WHITE BLOOD COUNT 5.5 K/mm3 (4.0-10.0)
[2021-05-07 23:45] LABS: CHLORIDE 104 mmol/L (98-107); SODIUM 140 mmol/L (136-145)
[2021-05-07 23:47] LABS: ANION GAP 7 MMOL/L (8-16); BLOOD UREA NITROGEN 13.5 mg/dL (7-18); CALCIUM 9.3 mg/dL (8.5-10.1); CO2 30 mmol/L (21-32); GLUCOSE,RANDOM 206 mg/dL (74-106); LIPASE 136 U/L (73-393)
[2021-05-07 23:50] LABS: CREATININE 0.8 mg/dL (0.55-1.3); SGOT/AST 15 U/L (15-37); SGPT/ALT 28 U/L (13-61)
[2021-05-07 23:52] LABS: BILIRUBIN,TOTAL 0.4 mg/dL (0.2-1); TOT PROT 7.3 g/dl (6.4-8.2)
[2021-05-07 23:53] LABS: ALK PHOS 67 U/L (45-117)
[2021-05-08] MEDS ORDERED: MAGNESIUM SULF 50% (8.12 MEQ/2 ML-1 GM VIAL) IVPB ONE (00:08)
[2021-05-08] MEDS ORDERED: POTASSIUM CHLORIDE TABS 20 MEQ TABLET.ER (FP) PO ONE ×2 (00:08→00:18)
[2021-05-08] MEDS ORDERED: MAGNESIUM SULFATE IN WATER 2 GM/50 ML IVPB IVPB ONE (00:18)
[2021-05-08] MEDS ORDERED: TAMSULOSIN HCL 0.4 MG CAP PO ONE (00:19)
[2021-05-08] MEDS ORDERED: SODIUM CHLORIDE 0.9% 500 ML INFUS.BAG IV ONE (00:19)
[2021-05-08] MEDS ORDERED: SUCRALFATE 1 GM TABLET (FP) PO ONE (02:05)
[2021-05-08] MEDS ORDERED: MAG HYDROX/AL HYDROX/SIMETH 30 ML UNIT-DOSE CUP PO ONE (02:05)
[2021-05-08 02:15] LABS: PH,URINE 6.5 (5.0-8.0); URINE APPEARANCE CLEAR; URINE BILIRUBIN NEGATIVE (NEGATIVE); URINE COLOR YELLOW; URINE GLUCOSE (UA) TRACE (NEGATIVE); URINE KETONE NEGATIVE (NEGATIVE); URINE LEUK ESTERASE NEGATIVE (NEGATIVE); URINE NITRITE NEGATIVE (NEGATIVE); URINE PROTEIN NEGATIVE (NEGATIVE); URINE UROBILINOGEN 0.2 mg/dL (0.2-1.0)
[2021-05-08] MEDS ORDERED: MAG HYDROX/AL HYDROX/SIMETH 30 ML UNIT-DOSE CUP ONE (02:24)
[2021-05-08] MEDS ORDERED: SUCRALFATE 1 GM TABLET (FP) ONE (02:24)
[2021-05-08 05:12] VITALS: BP 143/62; PULSE 67; TEMP 97.6
== END 2021-05-08 06:06 | disposition home or self-care (01) ==
LOC: JER 21:30
PROC: 3E033NZ Introduction of Analgesics, Hypnotics, Sedatives into Peripheral Vein, Percutaneous Approach (ICD-10-PCS; principal; 2021-05-07)
PROC: 3E033GC Introduction of Other Therapeutic Substance into Peripheral Vein, Percutaneous Approach (ICD-10-PCS; 2021-05-07)
DX: E11.9 Type 2 diabetes mellitus without complications (principal); K21.9 Gastro-esophageal reflux disease without esophagitis; R51.9 Headache, unspecified; R07.9 Chest pain, unspecified; R14.0 Abdominal distension (gaseous)
CPT/HCPCS: 36415; 70450-TC; 71045-TC-FY; 80053; 81003; 83690; 84484; 84703; 85025; 93005; 93010; 99285-25; J0131

== ENCOUNTER 2022-07-03 17:51 | Emergency (ER) | payer OTHER ==
[2022-07-03 18:15] VITALS: BP 134/64; PULSE 75; RESP 18; TEMP 98.2; BMI 30.2
[2022-07-03] MEDS ORDERED: KETOROLAC TROMETHAMINE 30 MG/1 ML VIAL IM ONE (19:39)
[2022-07-03] MEDS ORDERED: KETOROLAC TROMETHAMINE 30 MG/1 ML VIAL ONE (19:41)
== END 2022-07-03 20:00 | disposition home or self-care (01) ==
LOC: JER 17:51 → JERFT 17:51
PROC: 3E0233Z Introduction of Anti-inflammatory into Muscle, Percutaneous Approach (ICD-10-PCS; principal; 2022-07-03)
DX: M25.562 Pain in left knee (principal)
CPT/HCPCS: 99283-25

== ENCOUNTER 2022-11-20 04:37 | Day surgery (SDC) | payer OTHER ==
[2022-11-20] MEDS ORDERED: BUPIVACAINE HCL/PF 0.25% (2.5MG/ML) 10 ML VIAL ONE (07:39)
[2022-11-20] MEDS ORDERED: PROPOFOL 20 ML ONE (07:42)
[2022-11-20] MEDS ORDERED: MIDAZOLAM HCL 2 MG/2 ML SINGLE DOSE VIAL ONE (07:42)
[2022-11-20] MEDS ORDERED: ROCURONIUM BROMIDE 50 MG/5 ML SYRINGE ONE (07:42)
[2022-11-20] MEDS ORDERED: ceFAZolin SODIUM 1 GM VIAL IVPB ONE (08:30)
[2022-11-20] MEDS ORDERED: CEFOXITIN SODIUM 2 GM IVPB ONE (08:43)
[2022-11-20] MEDS ORDERED: BUPIVACAINE HCL/PF 0.25% (2.5MG/ML) 10 ML VIAL IJ ONE (08:45)
[2022-11-20] MEDS ORDERED: cefOXitin SODIUM 1 GM VIAL (RESTRICTED TO ID) IVPB ONE (08:45)
[2022-11-20] MEDS ORDERED: HEPARIN NA (PORCINE) 5,000 UNITS/ML 1ML VIAL ONE (08:46)
[2022-11-20] MEDS ORDERED: NEOSTIGMINE METHYLSULFATE 0.5 MG/ML - 10 ML MDV ONE ×2 (10:31→10:42)
[2022-11-20] MEDS ORDERED: ONDANSETRON 4 MG/2 ML VIAL IVPUSH PRN (10:54)
[2022-11-20] MEDS ORDERED: HYDROmorphone HCl 2 MG/ML VIAL ONE (11:12)
[2022-11-20] MEDS: HYDROmorphone HCL CARPU-JECT 2 MG/1 ML DISP.SYRIN IVPUSH PRN ×2 (11:15→17:00)
[2022-11-20] MEDS ORDERED: ALBUTEROL SO4 HFA INHALER IH PRN (11:22)
[2022-11-20] MEDS ORDERED: DEXTROSE 5%-0.45% SALINE 1,000 ML IV SCH (11:30)
[2022-11-20] MEDS ORDERED: KETOROLAC TROMETHAMINE 15 MG/ML VIAL IVPUSH PRN (11:34)
[2022-11-20] MEDS: LACTATED RINGERS SOLUTION 1,000 ML IV SCH ×2 (11:59→19:00)
[2022-11-20] MEDS ORDERED: METOCLOPRAMIDE HCL INJECTION 10 MG/2 ML VIAL ONE (12:39)
[2022-11-20] MEDS: METOCLOPRAMIDE HCL INJECTION 10 MG/2 ML VIAL IVPUSH SCH ×2 (12:40→22:00)
[2022-11-20] MEDS ORDERED: KETOROLAC TROMETHAMINE 30 MG/1 ML VIAL ONE (13:28)
[2022-11-20] MEDS ORDERED: ACETAMINOPHEN INJECTION 100 ML IVPB ONE (15:18)
[2022-11-20] MEDS ORDERED: ONDANSETRON 4 MG/2 ML VIAL ONE (15:19)
[2022-11-20] MEDS: ONDANSETRON 4 MG/2 ML VIAL IVPUSH SCH ×2 (15:23→21:59)
[2022-11-20] MEDS: ACETAMINOPHEN 1000 MG/100 ML BAG IVPB SCH ×2 (15:25→22:00)
[2022-11-20 18:10] VITALS: BMI 27.4
[2022-11-20] MEDS: oxyCODONE HCL 5 MG TABLET PO PRN (18:56)
[2022-11-20] MEDS: INSULIN SLIDING SCALE (NOVOLOG) 1 VIAL SQ SCH ×2 (21:16→22:00)
[2022-11-21] MEDS: ACETAMINOPHEN 1000 MG/100 ML BAG IVPB SCH (03:01)
[2022-11-21] MEDS: ONDANSETRON 4 MG/2 ML VIAL IVPUSH SCH ×3 (03:02→14:35)
[2022-11-21] MEDS: METOCLOPRAMIDE HCL INJECTION 10 MG/2 ML VIAL IVPUSH SCH ×2 (03:02→11:02)
[2022-11-21] MEDS: INSULIN SLIDING SCALE (NOVOLOG) 1 VIAL SQ SCH ×3 (06:05→17:01)
[2022-11-21] MEDS ORDERED: LEVOTHYROXINE NA 25 MCG TABLET (FP) PO SCH (07:00)
[2022-11-21 09:31] LABS: HEMOGLOBIN 11.9 GM/dL (10.7-15.3); MCHC 32.9 g/dl (32.0-36.0); MEAN CELL VOLUME 88.1 fl (80-96); MEAN PLT VOLUME 9.4 fl (7.5-11.1); PLATELET COUNT 247 10^3/uL (134-434); RBC 4.09 M/mm3 (3.60-5.2); RDW 14.3 % (11.6-15.6); WHITE BLOOD COUNT 9.3 K/mm3 (4.0-10.0)
[2022-11-21] MEDS: oxyCODONE HCL 5 MG TABLET PO PRN (09:47)
[2022-11-21 10:00] LABS: BLOOD UREA NITROGEN 10.7 mg/dL (7-18)
[2022-11-21] MEDS ORDERED: HYDROCHLOROTHIAZIDE 25 MG TABLET (FP) PO SCH (10:00)
[2022-11-21] MEDS ORDERED: LISINOPRIL 5 MG TABLET PO SCH (10:00)
[2022-11-21] MEDS ORDERED: SODIUM BICARBONATE 325 MG TABLET PO SCH (10:00)
[2022-11-21] MEDS ORDERED: PANTOPRAZOLE SODIUM 40 MG VIAL IVPUSH SCH (10:00)
[2022-11-21] MEDS ORDERED: ENOXAPARIN NA (PORCINE) 40 MG/0.4 ML DISP.SYRIN SQ SCH (10:00)
[2022-11-21 10:04] LABS: CREATININE 0.8 mg/dL (0.55-1.3)
[2022-11-21] MEDS: LACTATED RINGERS SOLUTION 1,000 ML IV SCH (11:05)
[2022-11-21] MEDS ORDERED: ACETAMINOPHEN 500 MG TABLET (FP) PO SCH (12:00)
[2022-11-21 15:17] VITALS: TEMP 98.2
[2022-11-21 18:06] VITALS: BP 143/72; PULSE 78; RESP 18
[2022-11-22] MEDS ORDERED: PANTOPRAZOLE 40 MG TABLET PO SCH (10:00)
== END 2022-11-21 18:00 | disposition home health service (06) ==
LOC: JASUSAT 04:37 → JASU-SURG 04:37 → SUATTDRO 04:37 → UNDOADMIN 11:16 → J2C 11:16 → J6S 17:55 → JASUSAT 11-21 18:00
PROVIDERS: ATTEND Internal Medicine
PROC: 0BQT4ZZ Repair Diaphragm, Percutaneous Endoscopic Approach (ICD-10-PCS; principal; 2022-11-20 08:00)
DX: K44.9 Diaphragmatic hernia without obstruction or gangrene (principal); K21.00 Gastro-esophageal reflux disease with esophagitis, without bleeding
CPT/HCPCS: 36415; 80048; 82962; 83735; 84100; 85027; 94010; 94760; 97116-GP; 97162-GP; J1644